=== PATIENT | male | born 1935 | race Caucasian/White ===

== ENCOUNTER → 2019-01-22 | Outpatient (CLI) | payer MEDICARE ==
--- NOTE | 2019-01-22 17:09 | PCVCIMAG ---
APPROVED REPORT Study performed: 01/22/2019 14:23:54 Exam: Stress Echocardiogram Indication: dyspnea Patient Location: Echo lab Stress Nurse: Stefani Alanis RN Status: routine Ht: 5 ft 5 in HR: 67 bpm BP: 124/76 mmHg Rhythm: NSR Procedure The patient underwent an Exercise Stress Test using the Jose L Protocol. Blood pressure, heart rate, and EKG were monitored. An Echocardiogram was performed by facilities maintenance technician in four stages in quad fashion. At peak stress, four selected images were obtained and placed side by side with resting images for comparison. Stress Test Details Stress Test: Exercise stress testing was performed using a Jose L protocol. HR Resting HR: 67 bpmMax Heart Rate (APMHR): 137 bpm Max HR Achieved: 131 bpmTarget HR (85% APMHR): 116 bpm % of APMHR: 95 Recovery HR: 85 bpm HR response to stress: Normal HR response to stress BP Resting BP: 124/76 mmHg Max BP: 146/70 mmHg Recovery BP: 110/68 mmHg BP response to stress: Normal blood pressure response to stress. ECG Resting ECG: Sinus Rhythm Stress ECG: Sinus Rhythm ST Change: Lateral ST depression, upsloping Maximum ST Deviation: -2.7 mm Arrhythmia: occasional PVCs or PACs Recovery ECG: Sinus Rhythm Recovery ST Change: lateral ST depression Recovery Arrhythmia: None Clinical Reason for Termination: Maximal effort Stress Symptoms: Dyspnea Exercise duration: 9 min 17 sec Highest Stage Achieved: Stage 4: 4.2 mph at 16% grade. Exercise capacity: 10.9 METs Overall Exercise Capacity for Age: Excellent Scale: Active Angina Score: None Stress ECG Conclusion [place] Treadmill Score is 22.5 which is Low risk. Pre-Stress Echo The resting Echocardiogram showed normal left ventricular contractility with an estimated Ejection Fraction of about >55%. Normal wall motion in all segments on baseline images. Post-Stress Echo The stress Echocardiogram showed normal left ventricular contractility with an estimated Ejection Fraction of about 65%. Normal augmentation of wall motion in all segments on post stress images. Clinical No clinical evidence for ischemia. Equivocal upsloping ST changes. Conclusion Clinical Response: Non-ischemic Exercise Capacity: Superior Stress ECG Response: Equivocal Stress Echo Images: Non-ischemic The left ventricle is normal in size and wall thickness in both the rest and stress images. Other Information Study Quality: Adequate <Conclusion> The left ventricle is normal in size and wall thickness in both the rest and stress images.
== END | disposition home or self-care (01) ==
LOC: PCVCIMAG 14:17
PROVIDERS: ATTEND Internal Medicine Cardiovascular Disease
DX: R06.00 Dyspnea, unspecified (principal)
CPT/HCPCS: 93325; 93351